=== PATIENT | female | born 1950 | race Caucasian/White ===

== ENCOUNTER 2024-09-02 11:53 | Emergency (ER) | payer MEDICARE, OTHER ==
[~2024-09-02] VITALS: Ht 165.1 cm; Wt 67.0 kg
[2024-09-02 13:03] VITALS: BP 156/62
[2024-09-02] MEDS ORDERED: Diph, Acellular Pertussis, Tet 0.5 ML/VIAL (Tdap) SDV IM ONE (13:10)
[2024-09-02 13:30] VITALS: BP 140/67
== END 2024-09-02 14:41 | disposition home or self-care (01) ==
LOC: ED 11:53
PROC: 0HQGXZZ Repair Left Hand Skin, External Approach (ICD-10-PCS; principal; 2024-09-02)
PROC: 0RSXXZZ Reposition Left Finger Phalangeal Joint, External Approach (ICD-10-PCS; 2024-09-02)
DX: S61.217A Laceration without foreign body of left little finger without damage to nail, initial encounter (principal); S63.287A Dislocation of proximal interphalangeal joint of left little finger, initial encounter; W01.0XXA Fall on same level from slipping, tripping and stumbling without subsequent striking against object, initial encounter; Y92.009 Unspecified place in unspecified non-institutional (private) residence as the place of occurrence of the external cause
CPT/HCPCS: 90715